=== PATIENT | male | born 1975 | race Caucasian/White ===

== ENCOUNTER → 2018-06-24 12:28 | Outpatient (CLI) | payer OTHER, SELFPAY | PROVIDERS: PCP Internal Medicine | DX: Z23 Encounter for immunization (principal) | CPT/HCPCS: 90471; 90686 ==

== ENCOUNTER → 2018-11-18 09:34 | Outpatient (CLI) | payer OTHER, SELFPAY ==
[2018-11-18 11:35] LABS: Cholesterol 244 mg/dL (140-199); HDL Cholesterol 48 mg/dL (40-60); LDL Cholesterol Calculated 174 mg/dL (<100); Triglycerides 110 mg/dL (35-150)
[2018-11-18 12:32] LABS: TSH w/ Reflex to FT4 7.49 uIU/mL (0.47-4.68)
[2018-11-18 13:00] LABS: Free T4, Direct Thyroxine 1.75 ng/dL (0.78-2.19)
== END ==
PROVIDERS: PCP Internal Medicine; Visit Provider Internal Medicine
DX: R73.9 Hyperglycemia, unspecified (principal); E78.2 Mixed hyperlipidemia; C73 Malignant neoplasm of thyroid gland
CPT/HCPCS: 36415; 80061; 83036; 84432; 84439; 84443; 86800

== ENCOUNTER → 2019-03-10 11:50 | Outpatient (CLI) | payer OTHER, SELFPAY ==
[2019-03-10 13:27] LABS: TSH w/ Reflex to FT4 5.47 uIU/mL (0.47-4.68)
[2019-03-10 13:56] LABS: Free T4, Direct Thyroxine 1.24 ng/dL (0.78-2.19)
== END ==
PROVIDERS: PCP Internal Medicine; Visit Provider Internal Medicine
DX: C73 Malignant neoplasm of thyroid gland (principal); E89.0 Postprocedural hypothyroidism
CPT/HCPCS: 36415; 84439; 84443

== ENCOUNTER → 2019-07-07 12:35 | Outpatient (CLI) | payer OTHER, SELFPAY | PROVIDERS: PCP Internal Medicine | DX: Z23 Encounter for immunization (principal) | CPT/HCPCS: 90471; 90686 ==

== ENCOUNTER → 2019-11-10 12:17 | Outpatient (CLI) | payer OTHER, SELFPAY | PROVIDERS: PCP Internal Medicine; Referring Provider Internal Medicine; Visit Provider Internal Medicine | DX: C73 Malignant neoplasm of thyroid gland (principal); E89.0 Postprocedural hypothyroidism | CPT/HCPCS: 36415; 84443 ==

== ENCOUNTER → 2020-07-18 09:27 | Outpatient (CLI) | payer OTHER, SELFPAY ==
--- NOTE | 2020-07-18 09:28 | DI.RAD.S_ITS ---
PROCEDURE: XR FOOT RT MIN 3V INDICATIONS: injury TECHNIQUE: 3 views of the foot were acquired. COMPARISON: None. FINDINGS: Bones: Subtle nondisplaced fracture proximal shaft of proximal phalanx of small toe. No other fractures or dislocations. No suspicious bony lesions. Soft tissues: No tibiotalar joint effusion. Achilles tendon appears normal. IMPRESSION: Subtle nondisplaced proximal shaft fracture of proximal phalanx of small to. Dictated by: Rosalio Wesley M.D. on 07/18/2020 at 9:41 Approved by: Rosalio Wesley M.D. on 07/18/2020 at 9:42
== END ==
PROVIDERS: PCP Internal Medicine; Referring Provider Nurse Practitioner; Visit Provider Nurse Practitioner
DX: S92.514A Nondisplaced fracture of proximal phalanx of right lesser toe(s), initial encounter for closed fracture (principal); M79.671 Pain in right foot; X58.XXXA Exposure to other specified factors, initial encounter
CPT/HCPCS: 73630

== ENCOUNTER → 2020-11-07 10:11 | Outpatient (CLI) | payer OTHER, SELFPAY ==
[2020-11-07 11:13] LABS: Add Manual Diff / Slide Review NO; Basophils Absolute Auto 0 /uL (0-100); Basophils Percent Auto 0.4 % (0-2); Eosinophils Absolute Auto 0 /uL (0-450); Eosinophils Percent Auto 0.8 % (2-4); Hematocrit 45.8 % (41-53); Lymphocytes Absolute Auto 1800 /uL (1100-4500); Lymphocytes Percent Auto 33.5 % (25-40); Mean Corpuscular HGB Conc 34.9 % (30-36); Mean Corpuscular Volume 94.8 fL (80-100); Monocytes Absolute Auto 500 /uL (0-900); Monocytes Percent Auto 10.3 % (3-14); Neutrophils Absolute Auto 2900 /uL (1500-7000); Platelet Count 337 X10^3/uL (150-400); Red Blood Cell Count 4.83 X10^6/uL (4.5-5.9); Red Cell Distribution Width 12.6 % (11.6-14.8); White Blood Cell Count 5.2 X10^3/uL (4.5-11.0)
[2020-11-07 11:25] LABS: Alanine Aminotransferase 31 IU/L (<50); Albumin 4.7 g/dL (3.5-5.0); Albumin Globulin Ratio 1.3 (1.0-2.8); Alkaline Phosphatase 76 U/L (38-126); Aspartate Aminotransferase 36 IU/L (17-59); BUN Creatinine Ratio 17.3 (6-22); Bilirubin Total 1.1 mg/dL (0.2-1.3); Blood Urea Nitrogen 14 mg/dL (9-20); Carbon Dioxide 32 mmol/L (22-32); Chloride 98 mmol/L (98-107); Cholesterol 313 mg/dL (140-199); Estimated Glomerular Filt Rate > 60.0 mL/min (>60); Globulin 3.5 g/dL (1.7-4.1); Glucose 117 mg/dL (70-100); HDL Cholesterol 91 mg/dL (40-60); HEMOLYSIS < 15 (0-50); LDL Cholesterol Calculated 184 mg/dL (<100); Sodium 136 mmol/L (137-145); Total Protein 8.2 g/dL (6.3-8.2); Triglycerides 190 mg/dL (35-150)
[2020-11-07 11:53] LABS: TSH w/ Reflex to FT4 2.68 uIU/mL (0.47-4.68)
== END ==
PROVIDERS: Referring Provider Internal Medicine; Visit Provider Internal Medicine
DX: C73 Malignant neoplasm of thyroid gland (principal)
CPT/HCPCS: 36415; 80053; 80061; 84443; 85025

== ENCOUNTER 2021-11-03 14:50 | Emergency (ER) | payer OTHER, SELFPAY ==
[2021-11-03 14:56] VITALS: BP 169/90; PULSE 102; RESP 16; TEMP 36.8; O2SAT 98; BMI 23.7
--- NOTE | 2021-11-03 15:05 | ED.WOUNDLAC ---
HPI - Wound/Laceration <Abraham Gilman PA-C - Last Filed: 11/03/21 15:43> General Chief Complaint: Wound/Laceration Stated Complaint: RT LEG LACERATION Time Seen by Provider: 11/03/21 14:53 Source: patient Mode of arrival: Ambulatory History of Present Illness HPI narrative: Patient is a 46-year-old male who presents to the ED with a lower right leg laceration. He reports that while he was walking by a broke pot in the backyard he accidentally rubbed up against it and his leg started bleeding. He reports not being current on his tetanus vaccine bleeding has been controlled with direct pressure no other injury reported. Related Data Previous Rx's Medication Instructions Recorded hydrocodone 5 mg-acetaminophen 325 1 tab PO Q4-6H PRN #10 tab /14/20 mg tablet ([place]) Allergies Allergy/AdvReac Type Severity Reaction Status Date / Time No Known Drug Allergies Allergy Verified 11/03/21 14:58 Review of Systems <Abraham Gilman PA-C - Last Filed: 11/03/21 15:43> Review of Systems ROS Unobtainable: All systems reviewed & are unremarkable except as noted in HPI and below Constitutional Constitutional: Denies chills, Denies fatigue, Denies fever(s), Denies frequent falls, Denies lethargy and Denies weakness Eyes Eyes: Denies change in vision, Denies eye discharge, Denies irritation and Denies loss of vision ENT Ears, Nose, Mouth, and Throat: Denies change in voice, Denies dizziness, Denies neck pain, Denies sore throat and Denies throat swelling Cardiovascular Cardiovascular: Denies chest pain, Denies irregular heart rhythm, Denies lightheadedness, Denies palpitations, Denies dyspnea, Denies dyspnea on exertion and Denies orthopnea Respiratory Respiratory: Denies cough, Denies dyspnea, Denies dyspnea on exertion and Denies wheezing Gastrointestinal Gastrointestinal: Denies abdominal pain, Denies change in bowel habits, Denies diarrhea, Denies nausea and Denies vomiting Genitourinary Genitourinary: Denies hematuria, Denies flank pain, Denies urinary incontinence and Denies urinary urgency Musculoskeletal Musculoskeletal: Denies back pain, Denies muscle weakness, Denies neck pain, Denies numbness and Denies tingling Integumentary/Breasts Skin/Breast: Reports bleeding lesions, Denies pruritus, Denies erythema, Denies rash and Denies wounds Neurologic Neurologic: Denies behavioral changes, Denies confusion, Denies dizziness, Denies frequent falls, Denies loss of vision, Denies numbness, Denies tingling and Denies weakness Psychiatric Psychiatric: Denies anxiety, Denies behavioral changes, Denies confusion, Denies depression, Denies homicidal ideation and Denies suicidal ideation Endocrine Endocrine: Denies fatigue, Denies flushing and Denies palpitations Hematologic/Lymphatic Hematologic/Lymphatic: Denies easy bruising Allergic/Immunologic Allergic/Immunologic: Denies urticaria, Denies throat swelling and Denies wheezing Patient History <Abraham Gilman PA-C - Last Filed: 11/03/21 15:43> Medical History (Updated 11/03/21 @ 15:43 by Abraham Gilman PA-C) No significant medical problems Social History Smoking Status: Never smoker Smoking Status: Never smoker Exam <Abraham Gilman PA-C - Last Filed: 11/03/21 15:43> Initial Vital Signs Initial Vital Signs: Vital Signs Temperature 98.3 F 11/03/21 14:56 Pulse Rate 102 H 11/03/21 14:56 Respiratory Rate 16 11/03/21 14:56 Blood Pressure 169/90 H 11/03/21 14:56 Pulse Oximetry 98 11/03/21 14:56 Skin Wounds: wounds noted (Right lower leg incisional wound approximately 2-1/2 inches in length bleed) <Melvi Portillo MD - Last Filed: 11/03/21 17:12> Initial Vital Signs Initial Vital Signs: Vital Signs Temperature 98.3 F 11/03/21 14:56 Pulse Rate 102 H 11/03/21 14:56 Respiratory Rate 16 11/03/21 14:56 Blood Pressure 169/90 H 11/03/21 14:56 Pulse Oximetry 98 11/03/21 14:56 Procedures <Abraham Gilman PA-C - Last Filed: 11/03/21 15:43> Laceration Repair Laceration 1: Time of procedure: 15:30 Site: lower extremity (right lower leg) Side (If applicable): right Size (cm): 5 Description: linear and clean Depth: simple, single layer Local Anesthetic: lidocaine 1% and with epi Amount of anesthesia used (mL): 8 Pre-repair: wound explored and irrigated extensively Skin layer closed with: nylon Size (cm): 3-0 Number of sutures: 6 Technique: simple, interrupted Course <Abraham Gilman PA-C - Last Filed: 11/03/21 15:43> Orders Ordered: Discontinued Medications Lidocaine/Epinephrine (Lidocaine 1% W/Epi) 4 ml INJ INTRA-OP ONE Stop: 11/03/21 15:10 Last Admin: 11/03/21 15:21 Dose: 4 ml Documented by: LANDY Vital Signs Vital signs: Vital Signs - 8 hr 11/03/21 14:56 Temperature 98.3 F Pulse Rate 102 H Respiratory Rate 16 Blood Pressure 169/90 H Pulse Oximetry 98 <Melvi Portillo MD - Last Filed: 11/03/21 17:12> Orders Ordered: Discontinued Medications Lidocaine/Epinephrine (Lidocaine 1% W/Epi) 4 ml INJ INTRA-OP ONE Stop: 11/03/21 15:10 Last Admin: 11/03/21 15:21 Dose: 4 ml Documented by: LANDY Vital Signs Vital signs: Vital Signs - 8 hr 11/03/21 14:56 Temperature 98.3 F Pulse Rate 102 H Respiratory Rate 16 Blood Pressure 169/90 H Pulse Oximetry 98 MDM - Wound/Laceration <Abraham Gilman PA-C - Last Filed: 11/03/21 15:43> Differential Diagnosis Differential diagnosis: Likely laceration MDM Narrative Medical decision making narrative: Patient presented to the ED with lower right leg laceration. Laceration was sutured patient tolerated well and will be discharged home told to return in 1 week for suture removal and wound recheck Discharge Plan Departure Patient Disposition: Home Clinical Impression: Laceration Instructions: DI for Laceration Repair Activity Restrictions/Additional Instructions: Your leg laceration was closed with sutures that will need to be removed. You need to return to the ED in 5-7 days to have your wound recheck and sutures removed. Wash daily with chlorhexidine solution or band any antibacterial soap keep dry and covered. Watch out for signs of infection to include redness or any discharge or pus drainage or any abnormal amounts of pain or swelling. Prescriptions: No Action hydrocodone-acetaminophen [[place]] 5-325 mg tablet 1 tab PO Q4-6H PRN (Reason: pain) Qty: 10 0RF <Melvi Portillo MD - Last Filed: 11/03/21 17:12> Cosign ED Attending Cosignature Attestation: I was immediately available in the department for consultation throughout this patient's visit. I agree with documentation as above. Melvi Portillo MD
[2021-11-03] MEDS: LIDOCAINE 1% W/EPI 4 ML INJ (15:21)
== END 2021-11-03 16:01 | disposition home or self-care (01) ==
PROVIDERS: Emergency Provider Physician Assistant
DX: S81.811A Laceration without foreign body, right lower leg, initial encounter (principal); W26.8XXA Contact with other sharp object(s), not elsewhere classified, initial encounter
CPT/HCPCS: 12002; 99283

== ENCOUNTER → 2023-04-09 11:39 | Outpatient (CLI) | payer OTHER, SELFPAY ==
--- NOTE | 2023-04-09 11:40 | DI.RAD.S_ITS ---
PROCEDURE: XR FOOT LT MIN 3V INDICATIONS: Foot pain at base of great toe TECHNIQUE: 3 views of the foot were acquired. COMPARISON: None. FINDINGS: Bones: Cortical lucency involving the lateral margin of the base of the 1st proximal phalange which may represent a small avulsion fracture. Soft tissues: No tibiotalar joint effusion. Achilles tendon appears normal. IMPRESSION: Possible fracture of the base of the 1st proximal phalange. Recommend correlation with clinical findings. Dictated by: Noemy Jernigan MD, PhD on 04/09/2023 at 13:22 Approved by: Noemy Jernigan MD, PhD on 04/09/2023 at 13:24
--- NOTE | 2023-04-09 11:40 | DI.RAD.S_ITS ---
PROCEDURE: XR KNEE LT 3V INDICATIONS: Knee pain TECHNIQUE: 3 views of the knee were acquired. COMPARISON: None. FINDINGS: Bones: No fractures or dislocations. No suspicious bony lesions. Prior anterior cruciate ligament repair. Mild tricompartment osteoarthritis. Soft tissues: No joint effusion. No suspicious soft tissue calcifications. IMPRESSION: Postsurgical changes.. Mild tricompartmental osteoarthritis. Dictated by: Noemy Jernigan MD, PhD on 04/09/2023 at 13:24 Approved by: Noemy Jernigan MD, PhD on 04/09/2023 at 13:24
== END ==
PROVIDERS: Referring Provider Nurse Practitioner Family; Visit Provider Nurse Practitioner Family
DX: M25.562 Pain in left knee (principal); M79.672 Pain in left foot; M17.12 Unilateral primary osteoarthritis, left knee
CPT/HCPCS: 73562; 73630

== ENCOUNTER 2024-03-25 12:12 | Emergency (ER) | payer OTHER, SELFPAY ==
[2024-03-25 12:14] VITALS: BP 148/92; PULSE 92; RESP 14; TEMP 37.3; O2SAT 97; BMI 23.1
--- NOTE | 2024-03-25 12:22 | ED.EXTPRO ---
HPI - Extremity Problem General Chief complaint: Extremity Problem,Nontraumatic Stated complaint: Left calf suspicious lump Time Seen by Provider: 03/25/24 12:16 History of Present Illness HPI Narrative: Patient here for evaluation of painless left calf mass. Patient noticed this 2 days ago while he was massaging his calf. Denies any history of blood clots in legs or lungs. No shortness a breath or chest pain. Patient states he does have a left knee that needs to be evaluated by Orthopedics. He has had problems with chronic knee pain. He jumped down from a fence a few days ago and felt a little sore on his left knee and he was massaging it as well as the calf and leg when he noticed this lump/mass in the left upper medial calf. Shoes and socks removed. Patient wearing shorts. Related Data Home Medications Medication Instructions Recorded Confirmed amlodipine PO 04/09/23 04/09/23 levothyroxine [Levoxyl] PO 04/09/23 04/09/23 Allergies Allergy/AdvReac Type Severity Reaction Status Date / Time No Known Drug Allergies Allergy Verified 03/25/24 12:24 Review of Systems Review of Systems Narrative: GENERAL: negative chills, fatigue, malaise, fever, sweats. HEENT: negative sinus pain, ear pain, sore throat RESPIRATORY: negative dyspnea, cough CARDIOVASCULAR: negative chest pain, palpitations GASTROINTESTINAL: negative nausea, vomiting, abdominal pain : negative dysuria, frequency, hematuria MUSCULOSKELETAL: negative muscle or bony pain SKIN: negative rash, skin lesions NEUROLOGIC: negative weakness, numbness ROS Unobtainable: All systems reviewed & are unremarkable except as noted in HPI and below Patient History Medical History (Updated 03/25/24 @ 15:04 by Moo Galvin MD) No significant medical problems Social History Smoking Status: Never smoker Smoking Status: Never smoker Exam Narrative Exam Narrative: GENERAL: in no distress, not toxic not dyspneic HEAD: Normocephalic. EYES: Pupils equal round EXTREMITIES: No gross deformities. Examination left lower extremity. Knee to toes exposed as well as thigh. No palpable cords on the thigh. There is a linear injury did palpable mass at the medial upper superior calf. It is painless. No overlying bruise or erythema or ecchymosis or discoloration. Leg warm soft and pink. Foot warm soft and pink. Strong pedal pulse brisk cap refills. Light touch intact to foot and toes NEURO: AOx4. Clear speech SKIN: Warm and dry PSYCH: Not anxious, is cooperative Initial Vital Signs Initial Vital Signs: Vital Signs Temperature 99.1 F 03/25/24 12:14 Pulse Rate 92 H 03/25/24 12:14 Respiratory Rate 14 03/25/24 12:14 Blood Pressure 148/92 H 03/25/24 12:14 Pulse Oximetry 97 03/25/24 12:14 Oxygen Delivery Method Room Air 03/25/24 12:14 Course Orders Ordered: ED Orders 03/25/24 12:21 US perip venous low extrem lt Stat Vital Signs Vital signs: Vital Signs - 8 hr 03/25/24 12:14 03/25/24 14:45 03/25/24 14:45 Temperature 99.1 F Pulse Rate 92 H 56 L Respiratory Rate 14 Blood Pressure 148/92 H 126/81 Pulse Oximetry 97 99 Oxygen Delivery Method Room Air 03/25/24 14:57 Temperature Pulse Rate 56 L Respiratory Rate Blood Pressure 126/81 Pulse Oximetry 99 Oxygen Delivery Method Room Air MDM - Extremity (Nontraumatic) Imaging Data US - DVT: Radiologist's Impression: [place] [address] Ultrasound Report Signed Patient: Demarcus Pinon MR#: [id number] : 1975 Acct:[id number] Age/Sex: 48 / M Date of Service: 03/25/24 Loc: ED Accession Number: [id number] Procedure: US perip venous low extrem lt Ordering Provider: Moo Galvin MD PROCEDURE: US PERIP VENOUS LOW EXTREM LT INDICATIONS: calf swelling TECHNIQUE: Real-time imaging, as well as color and pulse Doppler interrogation, were performed of the lower extremity deep veins from the inguinal ligament to the popliteal fossa, with documentation of the visualized calf veins. COMPARISON: None. FINDINGS: The common femoral, femoral, popliteal, and the visualized calf veins are normally compressible, and free of intraluminal thrombus. Color and pulse Doppler demonstrate normal phasic intraluminal flow. There is normal augmentation response to distal compression maneuver. Free fluid can be seen along the medial aspect of the left knee that measures 11.5 x 1.3 x 1.8 cm. No associated abnormal vascularity can be seen. IMPRESSION: No findings of lower extremity deep venous thrombosis. Along the medial aspect of the knee, there is an oblong nonvascular fluid collection seen. Please consider a resolving hematoma. Dictated by: Bret Sesay M.D. on 03/25/2024 at 13:54 Approved by: Bret Sesay M.D. on 03/25/2024 at 13:55 [facility] Narrative Medical decision making narrative: Patient here for evaluation of painless left calf mass. Patient noticed this 2 days ago while he was massaging his calf. Denies any history of blood clots in legs or lungs. No shortness a breath or chest pain. Patient states he does have a left knee that needs to be evaluated by Orthopedics. He has had problems with chronic knee pain. He jumped down from a fence a few days ago and felt a little sore on his left knee and he was massaging it as well as the calf and leg when he noticed this lump/mass in the left upper medial calf. Shoes and socks removed. Patient wearing shorts. After history and exam no blood work indicated at this time. No x-rays indicated. However I will order ultrasound of the leg [facility] Medical records reviewed: No recent visit for this complaint Differential considered: Includes but not limited to DVT SVT tendonitis tendinopathy muscular strain Lab Test results independently reviewed as above. Pertinent findings: None indicated Imaging studies independently reviewed: Ultrasound left leg no DVT, 11.5 x 1.3 x 1.8 cm free fluid medial aspect of left knee Consultations: None indicated at this time Treatments: None indicated Re-evaluations: 3:09 p.m.. Updated patient results. He does not understand the long wait due to radiology delay in getting it read for the ultrasound. Referral for Orthopedics provided as patient has not heard back from primary care for orthopedic referral. Return precautions reviewed. Reviewed with him this is likely not infection. This is possibly synovial fluid from the joint of the knee. This is never caused him any problems in the past he found this incidentally while rubbing his leg a couple of days ago. No chest complaints Discussion: Appropriate for discharge home exam is reassuring ultrasound is reassuring no blurry indicated this time. Fluid collection could be chronic or from injury/strain 2 days ago. Diagnosis: Lower leg edema Discharge Plan Departure Patient Disposition: Home Clinical Impression: Localized swelling of left lower extremity Instructions: DI for Knee Pain Activity Restrictions/Additional Instructions: Please follow up your primary care for the Orthopedic referral regarding your knee pain. Today's ultrasound does show small fluid collection near the knee, likely from the recent knee strain you had. No blood clots were seen in the leg. Please see family doctor and Orthopedic Service regarding this finding. No blood work or antibiotics or prescriptions are indicated at this time. It does not appear to be infection. Return if worse if any questions or concerns. Call provided orthopedic office if you need a orthopedic referral. Prescriptions: No Action amlodipine PO levothyroxine [Levoxyl] PO Referrals: Miscellaneous,MD Uli [Primary Care Provider] - Americo Phillips MD [Physician] - Stand Alone Forms: Patient Portal/API
[2024-03-25 14:45] VITALS: BP 126/81; PULSE 56; O2SAT 99
[2024-03-25 14:57] VITALS: BP 126/81; PULSE 56; O2SAT 99
== END 2024-03-25 15:15 | disposition home or self-care (01) ==
PROVIDERS: Emergency Provider Emergency Medicine
DX: R60.0 Localized edema (principal)
CPT/HCPCS: 93971; 99281; 99283

== ENCOUNTER → 2024-09-22 08:11 | Outpatient (CLI) | payer OTHER, SELFPAY ==
--- NOTE | 2024-09-22 08:15 | DI.RAD.S_ITS ---
PROCEDURE: XR FOOT RT MIN 3V INDICATIONS: TOE PAIN TECHNIQUE: 3 views of the foot were acquired. COMPARISON: [facility], CR, XR FOOT LT MIN 3V, 04/09/2023, 11:43. FINDINGS: Bones: Tiny erosion at the right little toe proximal phalanx lateral head with an adjacent tiny loose body. No fractures or dislocations. No suspicious bony lesions. Soft tissues: No tibiotalar joint effusion. Achilles tendon appears normal. IMPRESSION: Tiny erosion at the proximal phalanx of the little toe with an adjacent tiny loose body. No other acute abnormality. Dictated by: Quinn Abbasi M.D. on 09/22/2024 at 12:40 Approved by: Quinn Abbasi M.D. on 09/22/2024 at 12:45
== END ==
LOC: RAD 08:13
PROVIDERS: PCP Family Medicine; Referring Provider Family Medicine; Visit Provider Family Medicine
DX: M79.674 Pain in right toe(s) (principal)
CPT/HCPCS: 73630